=== PATIENT | male | born 1940 | race Caucasian/White ===

== ENCOUNTER 2019-12-26 20:01 | Emergency (ER) | payer MEDICARE, BC ==
[2019-12-26] MEDS ORDERED: Lidocaine 1% with EPINEPHrine 1:100,000 20 ML MDV ONE (20:12)
[2019-12-26 20:13] VITALS: BP 126/68; PULSE 69
[2019-12-26] MEDS ORDERED: Lidocaine 1% with EPINEPHrine 1:100,000 20 ML MDV INJECT ONE (20:26)
--- NOTE | 2019-12-26 20:53 | EDM.PDOC ---
ED HPI GENERAL MEDICAL PROBLEM - General Chief Complaint: Laceration Stated Complaint: laceration Time Seen by Provider: 12/26/19 20:25 Source of Information: Reports: Patient History Limitations: Reports: No Limitations - History of Present Illness INITIAL COMMENTS - FREE TEXT/NARRATIVE: Keny is an 79 yo male who presents to the ED with c/o laceration to left posterior scalp. He reports he was putting eye drops in, closed his eyes following, and then fell backward, hitting head on dresser. Denies any other issues. No focal neurologic deficit. 7 cm laceration noted to left posterior scalp. Bleeding controlled. Onset: Today, Sudden Onset Date: 12/26/19 Onset Time: 19:30 Location: Reports: Head Treatments [employer]: Reports: Cold Therapy - Related Data Allergies Allergy/AdvReac Type Severity Reaction Status Date / Time albuterol Allergy Hypertensio Verified 12/26/19 20:12 n trazodone Allergy Anaphylactic Verified 12/26/19 20:12 Shock Home Meds: Home Meds Aspirin 325 mg PO DAILY 06/21/13 [History] Azelastine [Astelin Nasal Soln] 1 spray INH ASDIRECTED PRN 06/21/13 [History] Betamethasone Dipropionate [Diprosone 0.05% Lotion] 1 dose TOP ASDIRECTED PRN 1 [History] Cholecalciferol (Vitamin D3) [Vitamin D] 10,000 unit PO DAILY 06/21/13 [History] Diltiazem [Diltiazem XR] 180 mg PO DAILY 06/21/13 [History] Fish Oil/[place]-3 Fatty Acids [Fish Oil] 1 each PO DAILY PRN 06/21/13 [History] Glucosam/Chond/Collagen/Hyalur [Glucosamine Chondroitin] 1 each PO DAILY 06/21/13 [History] Losartan [Cozaar] 50 mg PO DAILY 06/21/13 [History] Lutein/Minerals/Vit A,C & E [Ocuvite] 1 tab PO DAILY 06/21/13 [History] Magnesium Oxide [Magnesium] 400 mg PO DAILY 06/21/13 [History] Multivitamin [Daily Vitamin] 1 each PO DAILY 06/21/13 [History] Naproxen [Naprosyn] 500 mg PO Q12HR PRN 06/21/13 [History] Nefazodone 150 mg PO BID 06/21/13 [History] Pantoprazole Sodium [Protonix] 40 mg PO DAILY 06/21/13 [History] Pimecrolimus [Elidel] 1 each TOP ASDIRECTED PRN 06/21/13 [History] Psyllium with Sucrose [Metamucil] 1 each PO BID 06/21/13 [History] Ranitidine [Zantac] 150 mg PO BEDTIME 06/21/13 [History] Rosuvastatin Calcium [Crestor] 5 mg PO DAILY 06/21/13 [History] Triazolam 0.25 mg PO BEDTIME PRN 06/21/13 [History] Vitamin B Complex Vit C No.4 [Super B Complex] 150 mg PO DAILY 06/21/13 [History] Torsemide 30 mg PO DAILY 12/26/19 [History] Past Medical History HEENT History: Reports: Hard of Hearing, Impaired Vision, Sinusitis Cardiovascular History: Reports: Heart Murmur, High Cholesterol, Hypertension Respiratory History: Reports: Bronchitis, Recurrent Gastrointestinal History: Reports: GERD Musculoskeletal History: Reports: Back Pain, Chronic, Neck Pain, Chronic Psychiatric History: Reports: Anxiety, Depression - Past Surgical History GI Surgical History: Reports: Cholecystectomy Neurological Surgical History: Reports: Lumbar Spine, Spinal Fusion Social & Family History - Family History Cardiac: Reports: CAD, Hypertension Neurological: Reports: CVA - Living Situation & Occupation Living situation: Reports: , with Family ED ROS GENERAL - Review of Systems Review Of Systems: Comprehensive ROS is negative, except as noted in HPI. ED EXAM, SKIN/RASH Exam: See Below Exam Limited By: No Limitations General Appearance: Alert, WD/WN, No Apparent Distress Eye Exam: Bilateral Eye: EOMI, Normal Fundi, Normal Inspection, PERRL Ears: Normal External Exam, Normal Canal, Hearing Grossly Normal, Normal TMs Nose: Normal Inspection, Normal Mucosa, No Blood Throat/Mouth: Normal Inspection, Normal Lips, Normal Teeth, Normal Gums, Normal Oropharynx, Normal Voice, No Airway Compromise Head: Other (7 cm laceration to left posterior scalp, hematoma, tenderness) Neck: Normal Inspection, Supple, Non-Tender, Full Range of Motion Respiratory/Chest: No Respiratory Distress, Lungs Clear, Normal Breath Sounds, No Accessory Muscle Use, Chest Non-Tender Cardiovascular: Normal Peripheral Pulses, Regular Rate, Rhythm, No Edema, No Gallop, No JVD, No Murmur, No Rub Extremities: Normal Inspection, Normal Range of Motion, Non-Tender, No Pedal Edema, Normal Capillary Refill Neurological: Alert, Oriented, CN II-XII Intact, Normal Cognition, Normal Gait, Normal Reflexes, No Motor/Sensory Deficits Psychiatric: Normal Affect, Normal Mood Skin: Wound/Incision (7 cm laceration left posterior scalp) Location, Skin: Head ED SKIN PROCEDURES - Laceration/Wound Repair Left Posterior Head Appearance: Subcutaneous, Linear, Clean Anesthetic Type: Local Local Anesthesia - Lidocaine (Xylocaine): 1% with EPI Local Anesthetic Volume: 5cc Skin Prep: Providone-Iodine (Betadine), Saline Saline Irrigation (cc's): 30 Exploration/Debridement/Repair: Wound Explored, No Foreign Material Found Closed with: [place] Lac/Wound length In cm: 7 # of Sutures: 15 Tetanus Status Addressed: Yes (up to date) Complications: No Course - Vital Signs Last Recorded V/S: Last Vital Signs Temp 99.2 F 12/26/19 20:01 Pulse 69 12/26/19 20:01 Resp 16 12/26/19 20:01 BP 126/68 12/26/19 20:01 Pulse Ox 95 12/26/19 20:01 - Orders/Labs/Meds Meds: Medications Discontinued Medications Generic Name Dose Route Start Last Admin Trade Name Mari PRN Reason Stop Dose Admin Lidocaine/Epinephrine 20 ml 12/26/19 20:26 12/26/19 20:35 Xylocaine 1% With Epinephrine 1:100,000 INJECT 12/26/19 20:27 3 ml ONETIME ONE Administration Lidocaine/Epinephrine Confirm 12/26/19 20:12 12/26/19 20:35 Xylocaine 1% With Epinephrine 1:100,000 Administered 12/26/19 20:13 Not Given Dose 20 ml .ROUTE .STK-MED ONE Departure - Departure Time of Disposition: 20:47 Disposition: Home, Self-Care 01 Condition: Good Clinical Impression: Laceration of head Qualifiers: Encounter type: initial encounter Location of open wound of head: scalp Foreign body presence: without foreign body Qualified Code(s): S01.01XA - Laceration without foreign body of scalp, initial encounter - Discharge Information *PRESCRIPTION DRUG MONITORING PROGRAM REVIEWED*: Not Applicable *COPY OF PRESCRIPTION DRUG MONITORING REPORT IN PATIENT SINDY: Not Applicable Instructions: Sutures, [place], or Adhesive Wound Closure, [id number] Referrals: PCP,None [Primary Care Provider] - Additional Instructions: - Keep area clean and dry. It is ok to shower in 24 hours, just do not submerge or scrub area. - Tylenol 500-1000 mg every 6 hours as needed for headache/discomfort - Follow up 7 days for staple removal - Return to ED for any emergent needs (weakness in one side of body, slurred speech, increased confusion) Sepsis Event Note (ED) - Evaluation Sepsis Screening Result: No Definite Risk - Focused Exam Vital Signs: Vital Signs Temp Pulse Resp BP Pulse Ox 12/26/19 20:01 99.2 F 69 16 126/68 95 - Problem List & Annotations (1) Laceration of head SNOMED Code(s): 218240128 Code(s): S01.91XA - LACERATION W/O FOREIGN BODY OF UNSP PART OF HEAD, INIT Status: Acute Current Visit: Yes Qualifiers: Encounter type: initial encounter Location of open wound of head: scalp Foreign body presence: without foreign body Qualified Code(s): S01.01XA - Laceration without foreign body of scalp, initial encounter - Assessment/Plan Assessment:: Laceration of head Plan: 79 yo male presents with c/o laceration to left posterior scalp. No focal neurologic deficit. No additional complaints. Local anesthetic administered to area. 15 aide placed without difficulty. Wound approximated without difficulty. Patient is advised to f/u 7 days for staple removal. Patient discharged from facility in satisfactory condition.
== END 2019-12-26 20:55 | disposition home or self-care (01) ==
LOC: CC.ED 20:01
DX: S01.01XA Laceration without foreign body of scalp, initial encounter (principal); I10 Essential (primary) hypertension; E78.00 Pure hypercholesterolemia, unspecified; K21.9 Gastro-esophageal reflux disease without esophagitis; Z88.5 Allergy status to narcotic agent; Z88.8 Allergy status to other drugs, medicaments and biological substances; Z79.82 Long term (current) use of aspirin; Z79.899 Other long term (current) drug therapy; W19.XXXA Unspecified fall, initial encounter; W22.8XXA Striking against or struck by other objects, initial encounter
CPT/HCPCS: 12002; 99282; 99283